=== PATIENT | female | born 1995 ===

== ENCOUNTER → 2019-12-09 | Outpatient (CLI) | payer OTHER | LOC: MHCPAIN 15:01 | DX: M47.817 Spondylosis without myelopathy or radiculopathy, lumbosacral region (principal); M54.16 Radiculopathy, lumbar region | CPT/HCPCS: G0463 ==

== ENCOUNTER → 2019-12-19 | Outpatient (CLI) | payer OTHER | LOC: MHCPAIN 08:49 | DX: M54.5 Low back pain (principal) | CPT/HCPCS: J1100; Q9967 ==

== ENCOUNTER → 2020-01-16 | Outpatient (CLI) | payer OTHER | LOC: MHCPAIN 09:46 | DX: M53.3 Sacrococcygeal disorders, not elsewhere classified (principal); M54.5 Low back pain | CPT/HCPCS: J1100; Q9967 ==

== ENCOUNTER → 2020-03-24 | Outpatient (CLI) | payer OTHER | LOC: MHCPAIN 10:08 | DX: M54.5 Low back pain (principal); G89.29 Other chronic pain; M53.3 Sacrococcygeal disorders, not elsewhere classified | CPT/HCPCS: G0463 ==

== ENCOUNTER → 2020-04-09 | Outpatient (CLI) | payer OTHER | LOC: MHCPAIN 09:53 | DX: M47.817 Spondylosis without myelopathy or radiculopathy, lumbosacral region (principal); M54.5 Low back pain; M53.3 Sacrococcygeal disorders, not elsewhere classified; G89.29 Other chronic pain ==